=== PATIENT | male | born 1955 | race Caucasian/White ===

== ENCOUNTER 2021-06-15 04:05 | Inpatient (IN) | payer BC ==
[~2021-06-15] VITALS: Ht 182.9 cm; Wt 82.1 kg
--- NOTE | 2021-06-15 04:15 | NUR ---
BIBRA 62 FROM HOME FOR POSSIBLE SEIZURE. +ORAL TRAUMA. POST ICTAL ON SCENE PER EMS. PT ALERT AND ORIENTED X2. RESPONDS WHEN SPOKEN TO WITH NON LABORED BREATHING.
--- NOTE | 2021-06-15 04:17 | NUR ---
PT A/OX3. DOES NOT RECALL WHAT TIME SEISURE HAPPENED. PT CONNECTED TO POX AND TELE MONITOR
[2021-06-15] MEDS ORDERED: IV NS 0.9% 1,000 ML BAG IV ONE (04:30)
--- NOTE | 2021-06-15 04:32 | NUR ---
DISC PAD KNOCKOUT WORKER AT BEDSIDE
[2021-06-15 04:40] LABS: BASOPHILS # (AUTO) 0.1 K/uL (0.0-0.2); BASOPHILS % (AUTO) 0.8 % (0.0-2.0); EOSINOPHILS % (AUTO) 4.7 % (0.0-6.0); HEMATOCRIT 47 % (39-51); HEMOGLOBIN 15.3 g/dL (13.5-17.5); LYMPHOCYTES % (AUTO) 28.7 % (20.0-44.0); MEAN CORPUSCULAR HGB CONC 33 g/dl (31.0-36.0); MEAN CORPUSCULAR VOLUME 89 fL (80-96); MONOCYTES # (AUTO) 0.6 K/uL (0.1-1.30); MONOCYTES % (AUTO) 5.9 % (2.0-12.0); NEUTROPHILS # (AUTO) 6.2 K/uL (1.8-8.9); NEUTROPHILS % (AUTO) 59.9 % (43.0-81.0); PLATELET COUNT (AUTO) 194 K/uL (150-450); RED BLOOD CELL COUNT(AUTO) 5.27 MIL/uL (4.5-6.0); WHITE BLOOD COUNT (AUTO) 10.3 K/uL (4.3-11.0)
--- NOTE | 2021-06-15 04:55 | NUR ---
PT TAKEN TO CT
[2021-06-15 04:58] LABS: CALCIUM, SERUM 8.4 mg/dL (8.5-10.1); CARBON DIOXIDE 23 mmol/L (21-32); CHLORIDE 109 mmol/L (98-107); CREATININE 1.4 mg/dL (0.6-1.3); GLUCOSE 150 mg/dL (74-106); SODIUM SERUM 143 mmol/L (136-145); UREA NITROGEN, BLOOD 21 mg/dL (7-18)
[2021-06-15 05:10] LABS: ALANINE AMINOTRANSFERASE 39 U/L (12-78); ALBUMIN 3.4 g/dL (3.4-5.0); ALCOHOL, BLOOD < 3 mg/dL (0-0); ALKALINE PHOSPHATASE 103 U/L (46-116); ASPARTATE AMINOTRANSFERASE 21 U/L (15-37); BILIRUBIN,DIRECT 0.1 mg/dL (0.0-0.2); BILIRUBIN,TOTAL 0.3 mg/dL (0.2-1.0); TOTAL PROTEIN, SERUM 7.3 g/dL (6.4-8.2)
[2021-06-15] MEDS ORDERED: LEVETIRACETAM (500MG) 500 MG/5 ML VIAL IV ONE (05:58)
[2021-06-15] MEDS: LEVETIRACETAM (500MG) 1,000 MG in IV NS 0.9% 100 ML IV SCH ×2 (06:13→18:11)
[2021-06-15] MEDS ORDERED: HYDROCODONE/APAP 10/325MG TABLET ONE (06:15)
--- NOTE | 2021-06-15 06:25 | NUR ---
PT TAKEN TO CT
[2021-06-15] MEDS ORDERED: DOXYCYCLINE HYCLATE (100 MG) 100 MG TABLET PO ONE (06:30)
[2021-06-15] MEDS ORDERED: HYDROCODONE/APAP 10/325MG TABLET PO ONE (06:30)
--- NOTE | 2021-06-15 06:35 | NUR ---
DC IV ON LAC #18; NO ACTIVE BLEEDING NOTED. INITIATED RAC #18G
[2021-06-15] MEDS ORDERED: DOXYCYCLINE HYCLATE (100 MG) 100 MG TABLET ONE ×2 (06:41→06:45)
[2021-06-15] MEDS ORDERED: LEVE500T9 PO (06:53)
[2021-06-15] MEDS ORDERED: TRAM50TA2 PO (06:53)
[2021-06-15] MEDS ORDERED: DOXY100C2 PO (06:55)
[2021-06-15] MEDS ORDERED: ATOR40TA PO (08:40)
--- NOTE | 2021-06-15 08:40 | NUR ---
DR PACKER SPEAKING TO PT
--- NOTE | 2021-06-15 08:45 | NUR ---
COVID SWAB DONE AND SENT TO LAB
--- NOTE | 2021-06-15 09:55 | NUR ---
Pt accepted to 119-1
--- NOTE | 2021-06-15 11:06 | NUR ---
REPORT GIVEN TO OSWALDO FOR GLENN
--- NOTE | 2021-06-15 11:13 | NUR ---
PAGED EPIC REGISTERED SAFETY ENGINEER
--- NOTE | 2021-06-15 11:28 | NUR ---
ROOM ASSIGNMENT 119 IS CANCELLED, WAITING FOR A NEW ROOM ASSIGNMENT
--- NOTE | 2021-06-15 11:43 | NUR ---
PAGED EPIC LICENSE CLERK AGAIN
[2021-06-15 12:30] VITALS: BP 134/87
--- NOTE | 2021-06-15 12:30 | NUR ---
RN NOTES Received patient from ER via [facility] alert orriented x4, able to make needs known, transfer to bed safely, Vital sign taken and recorded, patient on room air no SOB noted, patient pain on his back 01/22, patient orrient to room and call light, peripheral acces on R antecubital patent flushes well, body assessment done, call light within reach, bed on lowest locked position, HOB elevated, call light within reach, will continue to monitor promptly.
[2021-06-15] MEDS ORDERED: ONDANSETRON HCL/PF 4 MG/2 ML VIAL IVP PRN (14:30)
[2021-06-15] MEDS ORDERED: ACETAMINOPHEN 325 MG TABLET PO PRN (14:30)
--- NOTE | 2021-06-15 15:40 | NUR ---
RN NOTES Seen and examined by Dr. Kraus with new order for CT Scan of head with and without contrast, Radiology department informed
[2021-06-15] MEDS: ENOXAPARIN SODIUM 40 MG/0.4 ML DISP.SYRIN SQ SCH (15:45)
[2021-06-15] MEDS: IV NS 0.9% 1,000 ML IV PRN (15:50)
--- NOTE | 2021-06-15 16:05 | NUR ---
RN NOTES Patient went out for CT Scan of the Head with and without contrast via wheelchair. Procedure explained to the patient and verbalize understanding
--- NOTE | 2021-06-15 16:55 | NUR ---
RN NOTES Pt back from CT Scan transfer to bed safely, no SOB noted at this time.
[2021-06-15] MEDS ORDERED: GADOTERATE MEGLUMINE 5 MMOL/10 ML VIAL IV ONE (17:32)
--- NOTE | 2021-06-15 18:44 | NUR ---
RN CLOSING NOTES PATIENT IN BED AWAKE ALERT AND ORRIENTED X4 ABLE TO MAKE NEEDS KNOWN PATIENT IS NOT IN ACUTE DISTRESS, ALL DUE MEDS GIVEN ORDERED, HOB ELEVATED, SAFETY PRECAUTION IN PLACE, CALL LIGHT WITHIN REACH AT ALL TIMES, ALL NEDDS ATTENDED PROMPTLY
--- NOTE | 2021-06-15 19:30 | NUR ---
RN NOTE RECEIVED PT IN BED WITH AT BEDSIDE, ALERT AND ORIENTED X 4. NOT IN ANY DISTRESS. PT WITH DISCOMFORT ON HIS BACK. TELE MONITOR SHOWS SR WITH HR ON 80S.ON NS RUNNING AT 75 ML/HR. IV INTACT AND PATENT. ALL SAFETY MEASURES IN PLACE PER PROTOCOL. WILL CONTINUE TO MONITOR.
[2021-06-15 20:00] VITALS: BP 141/84
[2021-06-15] MEDS ORDERED: HYDROCODONE/APAP 5/325MG TABLET PO PRN (23:00)
[2021-06-15] MEDS ORDERED: MORPHINE SULFATE INJ 4 MG/ML DISP.SYRIN IV PRN (23:00)
--- NOTE | 2021-06-15 23:04 | NUR ---
RN NOTE PT COMPLAINED OF SEVERE PAIN BACK PAIN. NOTIFIED HOBBING MACHINE OPERATOR MARTHA, WITH NEW ORDER OF PAIN MEDS. MORPHINE IVP GIVEN ORDERED. WILL CONTINUE TO MONITOR.
[2021-06-16] VITALS: BP 107/65
[2021-06-16 04:00] VITALS: BP 119/75
[2021-06-16] MEDS: LEVETIRACETAM (500MG) 1,000 MG in IV NS 0.9% 100 ML IV SCH ×2 (04:55→18:00)
[2021-06-16] MEDS: IV NS 0.9% 1,000 ML IV PRN (05:00)
--- NOTE | 2021-06-16 06:56 | NUR ---
RN NOTE PT SLEEPING, AROUSES EASILY. TOLERATING ROOM AIR. DENIES SOB. NO DISTRESS NOTED. PT DENIES ANY PAIN AT THIS TIME. PT CONTINENT, URINE COLLECTED PER ORDER. VS STABLE, NO SEIZURE WERE NOTED. CONTINUE ON IVFLUIDS AT 75ML/HR. NO SIGNS OF IV INFILTRATION NOTED. WILL ENDORSE TO NEXT SHIFT NURSE FOR GLENN.
[2021-06-16 07:06] LABS: BASOPHILS # (AUTO) 0.1 K/uL (0.0-0.2); BASOPHILS % (AUTO) 0.5 % (0.0-2.0); EOSINOPHILS % (AUTO) 3.1 % (0.0-6.0); HEMATOCRIT 43 % (39-51); HEMOGLOBIN 14.1 g/dL (13.5-17.5); LYMPHOCYTES # (AUTO) 2.1 K/uL (0.8-4.8); LYMPHOCYTES % (AUTO) 21.3 % (20.0-44.0); MEAN CORPUSCULAR HGB CONC 33 g/dl (31.0-36.0); MEAN CORPUSCULAR VOLUME 89 fL (80-96); MONOCYTES # (AUTO) 0.8 K/uL (0.1-1.30); MONOCYTES % (AUTO) 8.3 % (2.0-12.0); NEUTROPHILS # (AUTO) 6.6 K/uL (1.8-8.9); NEUTROPHILS % (AUTO) 66.8 % (43.0-81.0); PLATELET COUNT (AUTO) 175 K/uL (150-450); RED BLOOD CELL COUNT(AUTO) 4.81 MIL/uL (4.5-6.0); WHITE BLOOD COUNT (AUTO) 9.9 K/uL (4.3-11.0)
[2021-06-16 07:30] LABS: CREATININE 1.1 mg/dL (0.6-1.3); PHOSPHORUS 2.9 mg/dL (2.5-4.9); POTASSIUM 3.7 mmol/L (3.5-5.1)
[2021-06-16 08:00] VITALS: BP 127/76
[2021-06-16 16:00] VITALS: BP_SYST 135; BP_SYST 137; BP_SYST 141; BP_DIAS 64; BP_DIAS 77; BP_DIAS 80
--- NOTE | 2021-06-16 19:45 | NUR ---
MS RN OPENING NOTE PATIENT AWAKE WITH AT BEDSIDE, ALERT/ORIENTED X 4, PT ABLE TO MAKE NEEDS KNOWN. PT STABLE ON RA, NO S/S OF DISTRESS OR SOB NOTED, BREATHING EVEN AND UNLABORED. LEFT AC IV ACCESS RUNNING NS @ 75 ML/HR. PT DENIES PAIN AT THIS TIME. SAFETY MEASURES IN PLACE: CALL LIGHT WITHIN REACH, SIDE RAILS UP X 2, BED LOCKED IN LOW POSITION, SIDE RAILS UP X 2. WILL CONTINUE TO MONITOR PATIENT
--- NOTE | 2021-06-16 19:56 | NUR ---
RN CLOSING NOTE Patient in bed at bedside. No co pain or discomfort. No seizure this shift. PT eval done. TLSO received now in room. Patient was given instructions how to use. All due meds given. Vital signs within normal limits. Endorsed to research dietitian nurse for yadi.
[2021-06-16 20:00] VITALS: BP 143/86
[2021-06-16] MEDS: ENOXAPARIN SODIUM 40 MG/0.4 ML DISP.SYRIN SQ SCH (21:28)
[2021-06-17] MEDS: IV NS 0.9% 1,000 ML IV PRN (00:13)
[2021-06-17 04:00] VITALS: BP 116/67
[2021-06-17] MEDS: LEVETIRACETAM (500MG) 1,000 MG in IV NS 0.9% 100 ML IV SCH (05:25)
[2021-06-17 06:56] LABS: BASOPHILS # (AUTO) 0.1 K/uL (0.0-0.2); BASOPHILS % (AUTO) 0.8 % (0.0-2.0); EOSINOPHILS % (AUTO) 3.2 % (0.0-6.0); HEMATOCRIT 43 % (39-51); LYMPHOCYTES # (AUTO) 2.2 K/uL (0.8-4.8); LYMPHOCYTES % (AUTO) 26.7 % (20.0-44.0); MEAN CORPUSCULAR HGB CONC 33 g/dl (31.0-36.0); MEAN CORPUSCULAR VOLUME 89 fL (80-96); MONOCYTES # (AUTO) 0.8 K/uL (0.1-1.30); MONOCYTES % (AUTO) 9.7 % (2.0-12.0); NEUTROPHILS % (AUTO) 59.6 % (43.0-81.0); PLATELET COUNT (AUTO) 174 K/uL (150-450); RED BLOOD CELL COUNT(AUTO) 4.83 MIL/uL (4.5-6.0); WHITE BLOOD COUNT (AUTO) 8.4 K/uL (4.3-11.0)
--- NOTE | 2021-06-17 07:19 | NUR ---
MS RN CLOSING NOTE PATIENT AWAKE IN BED, NO SIGNIFICANT CHANGES THROUGHOUT SHIFT. NO SEIZURES THROUGHOUT SHIFT. MEDICATIONS GIVEN ORDERED, PT NEEDS MET THROUGHOUT SHIFT. SAFETY MEASURES IN PLACE: CALL LIGHT WITHIN REACH, SIDE RAILS UP X 2, BED LOCKED IN LOW POSITION, BED ALARM ON. ENDORSED TO DAY SHIFT NURSE FOR CONTINUITY OF CARE
--- NOTE | 2021-06-17 07:27 | NUR ---
RN OPENING NOTE Patient is awake, alert and oriented x 4, no respiratory distress, no SOB. On IV hydration 75cc/hr on RAC with no s/sx of infiltration. Safety precautions implemented, bed locked in lowest position, call light within reach.
[2021-06-17 07:50] LABS: CALCIUM, SERUM 7.8 mg/dL (8.5-10.1); PHOSPHORUS 3.1 mg/dL (2.5-4.9); POTASSIUM 3.9 mmol/L (3.5-5.1)
[2021-06-17 08:00] VITALS: BP 153/88
[2021-06-17] MEDS ORDERED: LEVE1000 PO (11:55)
--- NOTE | 2021-06-17 13:55 | NUR ---
PRODUCT COORDINATOR NOTE DISCHARGE PATIENT IN STABLE CONDITION, INSTRUCTION AND FOLLOW UP GIVEN TO THE PATIENT AND VERBALIZED UNDERSTANDING, VITAL SIGNS WITHIN NORMAL LIMIT, IV ACCESS AND ARMBAND REMOVED, HEALTH TEACHING AND MEDICATION INSTRUCTED, PRESCRIPTION GIVEN, ALL BELONGINGS GIVEN AND SIGNED BY THE PATIENT, PATIENT WHEELED TO THE LOBBY WENT HOME WITH VIA PRIVATE CAR
== END 2021-06-17 13:49 | disposition home or self-care (01) | DRG 100 ==
LOC: ER 04:09 → TELE1 10:41 → MEDSG1 06-16 08:14
PROVIDERS: ADMIT Nurse Practitioner Acute Care; ATTEND Nurse Practitioner Acute Care
DX: R56.9 Unspecified convulsions (principal); N17.0 Acute kidney failure with tubular necrosis; M84.48XA Pathological fracture, other site, initial encounter for fracture; E11.9 Type 2 diabetes mellitus without complications; E78.5 Hyperlipidemia, unspecified; E86.0 Dehydration; Z86.73 Personal history of transient ischemic attack (TIA), and cerebral infarction without residual deficits; Z20.822 Contact with and (suspected) exposure to COVID-19; R32 Unspecified urinary incontinence; F12.90 Cannabis use, unspecified, uncomplicated
CPT/HCPCS: 36415; 70450-TC; 70553-TC; 71045-TC; 72128-TC; 72131-TC; 80048-TC; 80061-TC; 80076-TC; 83735-TC; 84100-TC; 85025-TC; 87081-TC; 97116-TC; 97530-TC; A9575; C9803; G0378; G0480; J1650; J1953; J2270; J2405; J7030